=== PATIENT | male | born 1975 | race Caucasian/White ===

== ENCOUNTER 2021-12-26 10:04 | Outpatient (CLI) | payer BC, SELFPAY ==
[2021-12-26 14:05] LABS: Chloride* 106 mmol/L (96-114)
[2021-12-26 14:06] LABS: Potassium* 4.8 mmol/L (3.6-5.1); Sodium* 140 mmol/L (135-149)
[2021-12-26 14:08] LABS: Carbon Dioxide* 30 mmol/L (20-32); Cholesterol* 229 mg/dL (90-199); Estimated Glomerular Filt Rate 95 ml/min
[2021-12-26 14:09] LABS: Blood Urea Nitrogen* 20 mg/dL (5-24); Calcium* 9.5 mg/dL (8.4-10.6); Glucose* 104 mg/dL (60-115); HDL Cholesterol* 66 mg/dL (>=40); LDL Cholesterol Calculated 155 mg/dL (<100); Triglycerides* 40 mg/dL (40-149)
== END 2021-12-26 10:05 | disposition home or self-care (01) ==
PROVIDERS: PCP Family Medicine; Visit Provider Family Medicine
DX: Z00.00 Encounter for general adult medical examination without abnormal findings (principal); Z13.1 Encounter for screening for diabetes mellitus; Z13.6 Encounter for screening for cardiovascular disorders
CPT/HCPCS: 80048; 80061

== ENCOUNTER 2023-03-04 08:43 | Outpatient (CLI) | payer BC, SELFPAY ==
--- NOTE | 2023-03-04 09:40 | W.ANESCHARGE ---
Anesthesia Charges Start Date/Time Anesthesia Start Date: 03/04/23 Anesthesia Start Time: 09:13 Stop Date/Time Anesthesia Stop Date: 03/04/23 Anesthesia Stop Time: 09:41
--- NOTE | 2023-03-04 10:42 | W.ANESCHARGE ---
Anesthesia Charges Start Date/Time Anesthesia Start Date: 03/04/23 Anesthesia Start Time: 09:13 Stop Date/Time Anesthesia Stop Date: 03/04/23 Anesthesia Stop Time: 09:41
== END 2023-03-04 08:44 | disposition home or self-care (01) ==
LOC: OP CLINIC 08:45
PROVIDERS: PCP Family Medicine; Visit Provider Surgery
DX: Z12.11 Encounter for screening for malignant neoplasm of colon (principal); K57.30 Diverticulosis of large intestine without perforation or abscess without bleeding
CPT/HCPCS: 45378; 811; 812; J2704

== ENCOUNTER 2024-04-02 10:11 | Outpatient (CLI) | payer BC, SELFPAY | END 2024-04-02 10:12 | disposition home or self-care (01) | PROVIDERS: PCP Family Medicine; Visit Provider Internal Medicine | DX: R10.11 Right upper quadrant pain (principal) | CPT/HCPCS: 80053; 83690 ==

== ENCOUNTER 2024-04-13 06:59 | Outpatient (CLI) | payer BC, SELFPAY ==
--- NOTE | 2024-04-13 07:15 | CRLHL7_ITS ---
For Patients: As a result of the Century Cures Act, medical imaging exams and procedure reports are released immediately into your electronic medical record. You may view this report before your referring provider. If you have questions, please contact your health care provider. INDICATION: Right upper quadrant abdomen pain. TECHNIQUE: Ultrasound abdomen limited. Sonographic images of the right upper quadrant were obtained using ho-scale and color Doppler images. COMPARISON: None. FINDINGS: Liver: Normal in size and echotexture. No suspicious masses. No intrahepatic biliary dilatation. Gallbladder: Gallstone measuring 1.7 x 0.9 x 1.5 centimeters in the gallbladder fundus. Mild gallbladder wall thickening, measuring up to 3.4 millimeters. No pericholecystic fluid. No sonographic Escalante`s sign. Common bile duct: 1.5 mm. Pancreas: Visualized portion unremarkable. Right kidney: Normal in size. Normal echotexture and cortex. No suspicious masses, stones, or hydronephrosis. Vasculature: Proximal abdominal aorta and IVC are unremarkable. IMPRESSION: Cholelithiasis. Slight gallbladder wall thickening. No pericholecystic fluid. No sonographic Escalante sign reported. Early cholecystitis can not be excluded. Dictated by Alec Estes MD @ 04/13/2024 8:20:34 AM (Electronically Signed)
== END 2024-04-13 07:00 | disposition home or self-care (01) ==
LOC: US 07:00
PROVIDERS: PCP Internal Medicine; Visit Provider Internal Medicine
DX: R10.11 Right upper quadrant pain (principal); K80.20 Calculus of gallbladder without cholecystitis without obstruction
CPT/HCPCS: 76705

== ENCOUNTER 2024-06-02 07:02 | Day surgery (SDC) | payer BC, SELFPAY ==
[2024-06-02] VITALS (11 sets, daily range): BP systolic 101–124; BP diastolic 63–82; PULSE 56–68; RESP 14–16; TEMP 36.1–36.6; O2SAT 94–99; BMI 31.1
--- OUTSIDE RECORDS SUMMARY | 2024-06-02 07:05 | XMS_ITS | Clinical Summary ---
Author Organization [facility] Address [address] [place] [id number] Phone [email or web address] Care Team Providers Care Head Paper Tester Name Role Phone Unavailable Primary Care Provider Unavailabl e Allergies Active Allergy Reactions Criticality Noted Date Comments Sulfa Antibiotics Other (see comments) Medications predniSONE (DELTASONE) 20 MG tabletIndication s:Acute bronchitis, unspecified organism Take 1 tablet (20 mg total) by mouth 2 (two) times a day. 10 tablet 01/15/2019 Active Active Problems Problem Noted Date Diagnosed Date Acute bronchitis 01/15/2019 Resolved Problems Problem Noted Date Diagnosed Date Resolved Date Encounter for annual physical exam 11/10/2018 01/15/2019 Immunizations Name Administration Dates Next Due Hep B (ENGERIX B RECOMBIVAX) Adol/Ped (CVX-08) 0 02/05/1997 Hepatitis B (ENGERIX-B RECOMBIVAX) (CVX-43) 02/24 Influenza, (Afluria Fluzone) quad, PF, 6-35 mo (CVX-161) 03/12/2017 Tdap (ADACEL BOOSTRIX) (CVX-115) 03/12/2017 Varicella (VARIVAX) (TWO VIALS-MUST MIX) (CVX-21 ) 04/28/1997,03/12/1997 Family History Medical History Relation Name Comments Cancer Maternal Grandfather Saul Armando Lung - approx age 77 Cancer Maternal Grandmother Diane Armando Multipl e Myeoma-lived until 80s Cancer Paternal Grandfather Joseelizabeth Gomez Cancer Paternal Grandmother Ada Swim Relation Name Status Comments Father Alive Maternal Grandfather Saul Armando Maternal Grandmother Diane Armando Mother Alive Paternal Grandfather Joseelizabeth Gomez Paternal Grandmother Ada Swim Social History Tobacco Use Types Packs/Day Years Used Date Smoking Tobacco: Never Smokeless Tobacco: Never Alcohol Use Standard Drinks/Week Comments Yes 3 (1 standard drink = 0.6 oz pur e alcohol) occas Sex and Gender Information Value Date Recorded Sex Assigned at Not on file Legal Sex Male 7:51 AM CDT Gender Identity Not on file Sexual Orientation Not on file Occupation Industry Job Start Date Job End Date Not on file Not on file Not on file Not on file Last Filed Vital Signs Vital Sign Reading Time Taken Comments Blood Pressure 92/70 11/10/2018 11:59 AM CDT Pulse 75 11/10/2018 11:59 AM CDT Temperature 36.3 C (97.4 F) 11/10/2018 11:59 AM CDT Respiratory Rate 14 11/10/2018 11:59 AM CDT Oxygen Saturation 98% 11/10/2018 11:59 AM CDT Inhaled Oxygen Concentration - - Weight 104 kg (229 lb 14.4 oz) 11/10/2018 11:59 AM CDT Height 188 cm (6' 2) 11/10/2018 11:59 AM CDT Body Mass Index 29.52 11/10/2018 11:59 AM CDT Plan of Treatment Health Maintenance Due Date Last Done Comments Dental Cleaning/Exam 1975 Hepatitis B Immunization (2 of 3 - 19+ 3-dose series) 04/09/1997 03/12/1997, 02/05/1997 Colorectal Cancer Screening 2006 Covid-19 Immunization (2023- season) 2024 Influenza Immunization (#1) 2024 03/12/2017 Tetanus (Tdap or Td) Immunization 03/12/2027 03/12/2017 Tetanus Diphtheria and Pertussis Immunization (2 - Td or Tdap) 03/12/2027 03/12/2017 HIB Immunization Aged Out No longer e ligible based on patient's age to complete this topic HPV Immunization Aged Out No longer e ligible based on patient's age to complete this topic Hepatitis A Immunization Aged Out No longer eligible based on patient's age to complete this topic Pneumococcal: Ped (0 to 5 Yrs) and At-Risk Member (6 to 64 Yrs) Aged Out No longer eligible b ased on patient's age to complete this topic Polio Immunization Aged Out No longer eligible based on patient's age to complete this topic Insurance [facility] NO COPAY NB
--- OUTSIDE RECORDS SUMMARY | 2024-06-02 07:05 | XMS_ITS | Continuity of Care Document ---
Author Name [facility] Address Unknown Organization Unknown Address Unknown Procedures FILTER APPLIED:Only known Procedures with Onset Date within the last 5 years Procedure Date Procedure Provider Additional Inform ation Status ANES LWR INTST NDSC NOS (08598) Completed DIAGNOSTIC COLONOSCOPY (63285) Completed ANES LWR INTST SCR COLSC (68825) Completed Encounters FILTER APPLIED:Only known Encounters with Admission Date within the last 5 years Encounter Location Admission Discharge Billing Code Customs Entry Clerk Gabriela barnes Out[facility] Paz Galeana
--- OUTSIDE RECORDS SUMMARY | 2024-06-02 07:05 | XMS_ITS ---
Author Organization [facility] Address [address] [place] [address] Care Team Providers Care Ice Grinder Name Role Phone Unavailable Unavailable Unavailable Surgery Details Not on file Complications Check Surgery Details section. Procedure Estimated Blood Loss Check Surgery Details section. Procedure Findings Check Surgery Details section. Procedure Specimens Taken Check Surgery Details section.
--- OUTSIDE RECORDS SUMMARY | 2024-06-02 07:05 | XMS_ITS | Clinical Summary ---
Author Organization [facility] Address [address] [place] [address] Care Team Providers Care Manipulative Therapy Specialist Name Role Phone Unavailable Primary Care Provider Unavailabl e Source Comments Patient records contain information from all sites at [facility]. For routine questions regarding patient records, call [phone] during business hours, M-F 8:00 AM - 5:00 PM Central Time. Record requests for emergency care only can be directed to [phone] at any time.[facility] Allergies Active Allergy Reactions Criticality Noted Date Comments Sulfamethoxazole-Trimethoprim GI intolerance Sulfa (Sulfonamide Antibiotics) Other (see comments) 06/03/2022 Medications azithromycin (ZITHROMAX) 250 mg tabletIndications: Pharyngitis Streptococcal Take 2 tablets (500 mg) by mouth on day one then take 1 tablet (250 mg) by mouth on days 2 - 5. 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 Gender Identity Not on file Sexual Orientation Not on file Last Filed Vital Signs Vital Sign Reading Time Taken Comments Blood Pressure 136/89 07/14/2022 9:00 AM MACHINE BANDER AND CELLOPHANER HELPER Pulse 108 07/14/2022 9:00 AM MACHINE BANDER AND CELLOPHANER HELPER Temperature 36.8 C (98.2 F) 07/14/2022 9:00 AM MACHINE BANDER AND CELLOPHANER HELPER Respiratory Rate - - Oxygen Saturation - - Inhaled Oxygen Concentration - - Weight 110 kg (242 lb 11.2 oz) 07/14/2022 9:00 A M MACHINE BANDER AND CELLOPHANER HELPER Height - - Body Mass Index - - Plan of Treatment Health Maintenance Due Date Last Done Comments CT Colonography 1976 Cologuard 1976 Colonoscopy 1976 Colorectal Cancer Screening 1976 FIT 1976 Fasting Glucose for Diabetes Screening 1976 HIV Screening 1976 Hepatitis C Screening 1976 Lipid (Cholesterol) Screening 1976 Hepatitis B Vaccines (3 of 3 - 19+ 3-dose series) 08/05/1997 03/12/1997, 02/05/1997 Depression Screening (Annual PHQ-2) 05/27/2023 COVID-19 Vaccine ( season) 2024 05/29/2022, 2021, 10/07/2020, Additional history exists Influenza Vaccine (#1) 2024 03/12/2017 DTaP,Tdap,and Td Vaccines (3 - Td or Tdap) 12/27/2031 12/26/2021, 03/12/2017 IPV Vaccines Aged Out No longer eligi ble based on patient's age to complete this topic Pneumococcal vaccine (0-49 years) Aged Out No longer eligible based on patient's age to complete this topic Insurance [facility]
--- OUTSIDE RECORDS SUMMARY | 2024-06-02 07:05 | XMS_ITS | Referral Summary ---
Author Organization [facility] Address [address] [place] [address] Care Team Providers Care Business Team Leader Name Role Phone Unavailable Primary Care Provider Unavailabl e Source Comments Patient records contain information from all sites at [facility]. For routine questions regarding patient records, call [phone] during business hours, M-F 8:00 AM - 5:00 PM Central Time. 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
[2024-06-02] MEDS: 0.9 % SODIUM CHLORIDE 500 ML 500 ML IV (07:50)
[2024-06-02] MEDS: SODIUM CHLORIDE 0.9 % (FLUSH) 10 ML SYRINGE IVF (07:51)
[2024-06-02] MEDS: CEFAZOLIN 2 GM INJ IVP (08:15)
[2024-06-02] MEDS: BUPIVACAINE 0.5% 30 ML INJECTION (09:26)
--- NOTE | 2024-06-02 10:11 | W.ANESCHARGE ---
Anesthesia Charges Start Date/Time Anesthesia Start Date: 06/02/24 Anesthesia Start Time: 08:07 Stop Date/Time Anesthesia Stop Date: 06/02/24 Anesthesia Stop Time: 09:56
--- NOTE | 2024-06-02 11:13 | PM.GSPRC ---
Operative Note Date of procedure: 06/02/24 Pre-op diagnosis: Chronic cholecystitis Post-op diagnosis: Same Type of Procedure: Laparoscopic cholecystectomy Indications: Patient is a 49-year-old male who presented to clinic with persistent right upper quadrant abdominal pain. Clinical history and workup was suspicious for chronic cholecystitis. Different treatment options were reviewed including observation versus operative intervention. Risks and benefits of operative intervention were discussed at length with the patient. Risks included but was not limited to: Bleeding, infection, risk of damage to surrounding structures, possible need for additional procedures, possible need to convert to an open operation and postoperative complications such as pneumonia, pulmonary emboli or MT. All questions and concerns were addressed with the patient agreeing to proceed. Procedure Description: After discussing the risks and benefits of the procedure, the patient signed informed consent.? The operative site was marked and the patient was brought to the operating room and placed on the operating table in supine position.? Care was taken to pad the patient's pressure points.?? The patient was then intubated by anesthesia.?? The operative site was then prepped and draped in the usual sterile fashion.? A time-out was then performed. Entrance to the abdomen was gained via a 5 mm Visiport in the left upper quadrant. The abdomen was insufflated and briefly surveyed for signs of injury. There was none. 11 mm umbilical port was placed as well as 2 working ports along the right costal margin. Patient was then placed in reverse Trendelenburg position with the right side up. The gallbladder fundus was grasped and retracted cephalad. [A small amount of dissection was needed to free omental adhesions from the gallbladder.] The infundibulum was grasped. A combination of hook cautery and blunt dissection was used to carefully dissect out the cystic duct and artery until they could clearly be seen entering the gallbladder without any intervening structures. The cystic duct artery was on the posterior aspect of the gallbladder. The gallbladder was dissected off the cystic plate to achieve the critical view. Once this was achieved the cystic duct and artery were each clipped with 2 clips proximally and 1 clip distally and transected with the scissors. The gallbladder was then taken off of the liver bed and removed from the abdomen using an Endo-Catch bag. The gallbladder bed was surveyed for hemostasis. The umbilical port fascia was closed with 0 Vicryl. The ports were then removed under direct vision. The skin was closed with absorbable subcuticular suture. Instrument sponge and needle counts were correct at the end of the case. The patient was then woken and transferred to the PACU in stable condition. Findings: Normal appearing gallbladder, cholelithiasis. Anesthesia: GETA Surgeon: Paz Galeana MD Estimated blood loss (mL): 5 Specimen: Gallbladder Condition: stable Disposition: PACU
== END 2024-06-02 11:11 | disposition home or self-care (01) ==
PROVIDERS: PCP Internal Medicine; Visit Provider Surgery
PROC: 0FT44ZZ Resection of Gallbladder, Percutaneous Endoscopic Approach (ICD-10-PCS; CPT 47562; principal; 2024-06-02 08:00)
DX: K80.10 Calculus of gallbladder with chronic cholecystitis without obstruction (principal); R10.11 Right upper quadrant pain
CPT/HCPCS: 47562; 00790; 88304; J0330; J0665; J0690; J1100; J2250; J2405; J2704; J2710; J3010; J7030; J7120